=== PATIENT | female | born 1965 | race Caucasian/White ===

== ENCOUNTER → 2019-07-03 16:09 | Outpatient (CLI) | payer OTHER, SELFPAY ==
[2019-06-20 09:50] VITALS: BMI 30.6
--- NOTE | 2019-07-03 16:22 | MRI_ITS ---
STUDY: MRI BRAIN WITH AND WITHOUT CONTRAST REASON FOR EXAM: Female, 53 years old. 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 IV Yes YES was administered for the contrast portion of the examination. COMPARISON: None. FINDINGS: Normal size of the ventricles and extra-axial spaces for the patient''s age. Normal white matter tracts of the supratentorial brain. Normal bilateral basal ganglia. Normal thalami. There is no extra-axial fluid accumulation. Normal flow voids within the major intracranial circulation suggesting patency by spin echo criteria. Normal venous enhancement. There is no enhancing intra-axial or extra-axial abnormality. Normal sella turcica, pituitary gland, infundibular stalk, optic chiasm and hypothalamus. Normal tectal plate and pineal gland. Normal midbrain, shana and medulla. Normal cerebellum. Normal basal cisterns. Normal bilateral temporal bones. Normal bilateral internal auditory canals. No demonstrated orbital abnormality, within the constraints of a routine brain study. Normal visualized paranasal sinuses. Normal calvarium and skull base. Normal visualized soft tissue structures. Normal visualized upper cervical spine. The trigeminal nerves appear relatively symmetric in size and there is no definitive evidence for focal enhancing component. MRI/Brain W/WO Contrast IMPRESSION: Normal unenhanced and enhanced MRI of the brain. No definitive evidence for trigeminal neuroma Electronically Signed: Rober Otto MD at 17:49 EDT , Service support ,
--- NOTE | 2019-07-03 16:22 | MRI_ITS ---
STUDY: MRA OF THE HEAD WITHOUT CONTRAST REASON FOR EXAM: Female, 53 years old. 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 The study was performed unenhanced. COMPARISON: None. FINDINGS: Normal bilateral petrous carotid arteries. Normal right cavernous carotid artery with a normal supraclinoid bifurcation. Normal left cavernous carotid artery with a normal supraclinoid bifurcation. Normal right A1 segments of the anterior cerebral artery. Normal left A1 segments of the anterior cerebral artery. Normal intact anterior communicating artery (ACOM). Normal bilateral A2 segments of the anterior cerebral arteries. Normal right M1 and M2 segments of the middle cerebral arteries, with a normal M1 bifurcation. Normal left M1 and M2 segments of the middle cerebral arteries, with a normal M1 bifurcation. Posterior communicating arteries are not visualized consistent with normal variant). Normal bilateral vertebral arteries. Normal basilar artery with a normal basilar bifurcation. The visualized bilateral superior cerebellar (SCA) arteries are normal. Normal bilateral P1, P2 and visualized P3 segments of the posterior cerebral arteries. There is no demonstrated aneurysm of the [place]. There is no major vessel occlusion or hemodynamically significant stenosis. There is no demonstrated abnormality of the visualized brain. MRI/MRA Head ONLY without Contrast IMPRESSION: Normal MRA of the head Electronically Signed: Rober Otto MD at 17:30 EDT , Service support ,
== END ==
PROVIDERS: Referring Provider Psychiatry & Neurology Neurology; Visit Provider Psychiatry & Neurology Neurology
DX: G50.9 Disorder of trigeminal nerve, unspecified (principal)
CPT/HCPCS: 70544; 70553; A9575

== ENCOUNTER → 2023-03-03 | Outpatient (CLI) | payer OTHER, SELFPAY ==
--- NOTE | 2023-03-03 16:34 | MRI_ITS ---
STUDY: MRI RIGHT THUMB REASON FOR EXAM: Female, 57 years old. assess for pain at the mcp joint of the thumb RT TECHNIQUE: Standardized fat and water weighted pulse sequences were obtained in all 3 orthogonal planes. COMPARISON: None. FINDINGS: FIRST DIGIT: There is degenerative arthrosis of the carpometacarpal articulation of the thumb. There is degenerative arthrosis with of the second through fifth carpometacarpal. Normal flexor and extensor tendons. There is no soft tissue abnormality. Normal visualized thenar and hypothenar muscles. Normal lumbricalis and interosseous muscles. There are no solid, cystic or lipomatous masses. MRI/Upper Ext/No Jt/ wo IMPRESSION: There is degenerative arthrosis of the carpometacarpal articulation of the thumb. There is degenerative arthrosis with of the second through fifth carpometacarpal Electronically Signed: Gregor Leblanc MD at 16:30 EST ,
== END | disposition home or self-care (01) ==
LOC: MRI 16:26
PROVIDERS: PCP Internal Medicine; Referring Provider Orthopaedic Surgery Sports Medicine; Visit Provider Orthopaedic Surgery Sports Medicine
DX: M79.644 Pain in right finger(s) (principal)
CPT/HCPCS: 73218